=== PATIENT | female | born 1970 | race Caucasian/White ===

== ENCOUNTER 2017-03-18 07:44 | Day surgery (SDC) | payer OTHER ==
[~2017-03-18] VITALS: Ht 170.2 cm; Wt 96.7 kg
[2017-03-18 08:05] VITALS: Ht 170.2 cm; Wt 96.7 kg
[2017-03-18 08:34] VITALS: BP 110/65; PULSE 76; RESP 18
[2017-03-18] MEDS ORDERED: PROPOFOL 40 ML ONE (08:43)
[2017-03-18] MEDS ORDERED: MIDAZOLAM 1 MG/ML 2 ML INJ ONE (08:43)
[2017-03-18] MEDS ORDERED: FENTAnyl 50 MCG/ML VIAL ONE (08:43)
--- NOTE | 2017-03-18 09:08 | OPPN ---
Date/Time of Note Date/Time of Note DATE: 03/18/17 TIME: 09:06 Proc Note GI Procedure Date 03/18/17 Indication: screening/surveillance Pre-procedure Diagnosis r/o colon polyps Post-procedure Diagnosis diverticulosis hemorrhoids Procedure Performed: Colonoscopy Surgeon see signature line Switching Operator none Anesthesia Type: MAC Tourniquet Time none EBL none Transfusion required none Biopsy 1: none Grafts/Implants none Tubes/Drains none Complication(s) none Disposition: PACU Procedure Description under mac colonoscopy performed diverticulosis and hemorrhoids noted DENG MICHAEL MD Mar 18, 2017 09:08
--- NOTE | 2017-03-18 12:55 | GILP ---
DATE OF PROCEDURE: PROCEDURE: Colonoscopy. PREOPERATIVE DIAGNOSIS: Screening colonoscopy to rule out colon polyps. POSTOPERATIVE DIAGNOSES: Minimal internal hemorrhoids and occasional diverticula. DESCRIPTION OF PROCEDURE: After the informed written consent was obtained, the patient was asked to lie on the left lateral side. Intravenous anesthesia was given by anesthesiologist, Dr. Edwards. When the patient became somnolent, the Olympus video colonoscope was introduced into the rectum and scope was advanced all the way to the cecum. Entire colon appeared normal. Diverticula was noted to be scattered along the colon with no mucosal abnormality, no bleeding noted. On the way out, ret roflexion was performed. Minimal internal hemorrhoids noted as well and the procedure was terminate d. PLAN: Recommend a high-fiber diet and recommend colonoscopy repeat in 10 years. Dictated By: DENG SAINI/ERWIN Conf#: [id number] DID#: [id number]
== END 2017-03-18 10:22 | disposition home or self-care (01) ==
LOC: GIL 07:44
PROVIDERS: ATTEND Internal Medicine Gastroenterology
DX: Z12.11 Encounter for screening for malignant neoplasm of colon (principal); K57.90 Diverticulosis of intestine, part unspecified, without perforation or abscess without bleeding; K64.8 Other hemorrhoids
CPT/HCPCS: 45378; 84703; J2250; J3010; Z7610

== ENCOUNTER 2018-12-18 07:30 | Day surgery (SDC) | payer OTHER ==
[~2018-12-18] VITALS: Ht 167.6 cm; Wt 100.1 kg
[2018-12-18] VITALS (13 sets, daily range): BP systolic 108–132; BP diastolic 66–86; PULSE 56–70; RESP 15–20; Ht 167.6 cm; Wt 100.1 kg
[2018-12-18] MEDS ORDERED: CEFAZOLIN 2 GM/50 ML (PMX) 50 ML IVPB ONE (11:00)
[2018-12-18] MEDS ORDERED: SOD CHLORIDE 0.9% 1,000 ML IV SCH (11:00)
[2018-12-18] MEDS ORDERED: POLYMYXIN/BACITRACIN 1L IRRIG ONE (11:20)
[2018-12-18] MEDS ORDERED: LIDOCAINE 2% (SDV) 5 ML INJ ONE (11:32)
[2018-12-18] MEDS ORDERED: ROCURONIUM 50 MG INJ ONE (11:32)
[2018-12-18] MEDS ORDERED: MIDAZOLAM 1 MG/ML 2 ML INJ ONE (11:32)
[2018-12-18] MEDS ORDERED: SUCCINYLCHOLINE CHLORIDE 100 MG/5 ML SYG IV ONE (11:32)
[2018-12-18] MEDS ORDERED: PROPOFOL 20 ML ONE (11:32)
[2018-12-18] MEDS ORDERED: ROPIVACAINE 0.5 % 30 ML VIAL ONE (11:38)
[2018-12-18] MEDS ORDERED: CEFAZOLIN 1 GM INJ ONE (11:58)
[2018-12-18] MEDS ORDERED: ONDANSETRON 4 MG INJ ONE (11:59)
[2018-12-18] MEDS ORDERED: SUGAMMADEX SODIUM 200 MG/2 ML VIAL IV ONE (12:34)
[2018-12-18] MEDS ORDERED: PROVENTIL HFA 6.7GM INHALER ONE (12:43)
[2018-12-18] MEDS ORDERED: HYDROCODONE/APAP (5/325) TAB PO ONE (13:00)
[2018-12-18] MEDS ORDERED: ONDANSETRON 4 MG INJ IV PRN (14:00)
[2018-12-18] MEDS ORDERED: FENTAnyl 50 MCG/ML VIAL IV PRN ×2 (14:00)
[2018-12-18] MEDS ORDERED: METOCLOPRAMIDE 10 MG INJ IV PRN (14:00)
[2018-12-18] MEDS ORDERED: ALBUMIN HUMAN 5% 250 ML IV PRN (14:00)
[2018-12-18] MEDS ORDERED: hydrALAzine 20 MG INJ IV PRN (14:00)
[2018-12-18] MEDS ORDERED: EPHEDrine 25 MG/5 ML SYG IV PRN (14:00)
[2018-12-18] MEDS ORDERED: HYDROmorphONE 1 MG/5 ML IV SYRINGE IV PRN ×3 (14:00)
[2018-12-18] MEDS ORDERED: ACETAMINOPHEN 500 MG TAB PO STA (16:31)
== END 2018-12-18 17:22 | disposition home or self-care (01) ==
LOC: SDS 07:30
PROVIDERS: ATTEND Surgery
DX: K43.6 Other and unspecified ventral hernia with obstruction, without gangrene (principal)
CPT/HCPCS: 49653; 71045; 80053; 84703; 85025; 85610; 85730; 93005; J0690; J1170; J2250; J2405; J2765; J2795; J3010; Z7512; Z7610; 88302